=== PATIENT | female | born 2000 | race Caucasian/White ===

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

== ENCOUNTER 2019-01-23 16:57 | Emergency (ER) | payer OTHER ==
[2019-01-23] MEDS ORDERED: NORMAL SALINE 1000 ML 1,000 ML IV ONE (17:42)
--- NOTE | 2019-01-23 17:43 | ER Document Report ---
ED Medical Screen (RME) - General Chief Complaint: Palpitations Stated Complaint: HEART PROBLEMS Time Seen by Provider: 01/23/19 17:41 Mode of Arrival: Ambulatory Information source: Patient Notes: Patient presents complaining of palpitations that started today. Patient reports feeling distracted. Patient denies any cough or cold symptoms. No shortness of breath. Patient's heart rate in triage 134. She does report starting a new medication Luvox to treat OCD and anxiety. I have greeted and performed a rapid initial assessment of this patient. A comprehensive ED assessment and evaluation of the patient, analysis of test results and completion of the medical decision making process will be conducted by additional ED providers. TRAVEL OUTSIDE OF THE [place] IN LAST 30 DAYS: No - Related Data Allergies/Adverse Reactions: azithromycin [From Zithromax Z-Uri] Allergy (Unknown, Verified 02/28/17 19:55) Hives Past Medical History Renal/ Medical History: Denies: Hx Peritoneal Dialysis Psychiatric Medical History: Reports: Hx Attention Deficit Hyperactivity Disorder Past Surgical History: Reports: Hx Tonsillectomy - addenoids - Immunizations Immunizations up to date: Yes Hx Diphtheria, Pertussis, Tetanus Vaccination: Yes Physical Exam - Vital signs Vitals: Temp Pulse Resp BP Pulse Ox 98.9 F 118 H 20 139/86 H 100 01/23/19 17:01 01/23/19 17:01 01/23/19 17:01 01/23/19 17:01 01/23/19 17:01 - General General appearance: Alert, Anxious Notes: Tachycardic Course - Vital Signs Vital signs: Temp Pulse Resp BP Pulse Ox 98.9 F 118 H 20 139/86 H 100 01/23/19 17:01 01/23/19 17:01 01/23/19 17:01 01/23/19 17:01 01/23/19 17:01
[2019-01-23 19:10] LABS: ABSOLUTE BASOPHILS # (AUTO) 0.1 10^3/uL (0.0-0.2); ABSOLUTE EOSINOPHILS # (AUTO) 0.1 10^3/uL (0.0-0.6); ABSOLUTE LYMPHOCYTES (AUTO) 2.9 10^3/uL (0.5-4.7); ABSOLUTE MONOCYTES (AUTO) 0.5 10^3/uL (0.1-1.4); ABSOLUTE NEUT (AUTO) 5.5 10^3/uL (1.7-8.2); BASOPHILS % (AUTO) 0.6 % (0-2); EOSINOPHILS % (AUTO) 0.6 % (0-6); HEMATOCRIT 38.6 % (36.0-47.0); HEMOGLOBIN 12.9 g/dL (12.0-15.5); MEAN CORPUSCULAR HEMOGLOBIN 27.6 pg (27.0-33.4); MEAN CORPUSCULAR HGB CONC 33.5 g/dL (32.0-36.0); MEAN CORPUSCULAR VOLUME 82 fl (80-97); PLATELET COUNT 327 10^3/uL (150-450); RED BLOOD COUNT 4.68 10^6/uL (3.72-5.28); RED CELL DISTRIBUTION WIDTH 14.2 % (11.5-14.0); SEGMENTED NEUTROPHILS % (AUTO) 60.8 % (42-78); TOTAL CELLS COUNTED % (AUTO) 100 %; WHITE BLOOD COUNT 9.1 10^3/uL (4.0-10.5)
[2019-01-23 19:28] LABS: ALBUMIN 4.9 g/dL (3.5-5.0); ALKALINE PHOSPHATASE 86 U/L (38-126); ANION GAP 15 (5-19); ASPARTATE AMINO TRANSFERASE 27 U/L (14-36); BILIRUBIN,DIRECT 0.2 mg/dL (0.0-0.4); BLOOD UREA NITROGEN 10 mg/dL (7-20); CALCIUM 10.3 mg/dL (8.4-10.2); CARBON DIOXIDE 21 mmol/L (22-30); CHLORIDE 103 mmol/L (98-107); GLUCOSE 88 mg/dL (75-110); POTASSIUM 3.7 mmol/L (3.6-5.0); TOTAL PROTEIN 7.6 g/dL (6.3-8.2)
[2019-01-23 19:29] VITALS: BP 130/78
--- NOTE | 2019-01-23 19:39 | RADIOLOGY REPORT (SQ) ---
EXAM DESCRIPTION: CHEST 2 VIEWS COMPLETED DATE/TIME: 01/23/2019 7:20 pm REASON FOR STUDY: palpitations COMPARISON: None. EXAM PARAMETERS: NUMBER OF VIEWS: two views TECHNIQUE: Digital Frontal and Lateral radiographic views of the chest acquired. RADIATION DOSE: NA LIMITATIONS: none FINDINGS: LUNGS AND PLEURA: No opacities, masses or pneumothorax. No pleural effusion. MEDIASTINUM AND HILAR STRUCTURES: No masses or contour abnormalities. HEART AND VASCULAR STRUCTURES: Heart normal size. No evidence for failure. BONES: No acute findings. HARDWARE: None in the chest. OTHER: No other significant finding. IMPRESSION: NO ACUTE RADIOGRAPHIC FINDING IN THE CHEST. TECHNICAL DOCUMENTATION: JOB ID: [id number] [place]-72 2010 [employer]- All Rights Reserved Reading location - IP/workstation name: [facility]
--- NOTE | 2019-01-23 19:39 | ER Document Report ---
ED General - General Chief Complaint: Palpitations Stated Complaint: HEART PROBLEMS Time Seen by Provider: 01/23/19 17:41 Primary Care Provider: BRANDYN CORNELL PA-C [Primary Care Provider] - Follow up as needed (These follow- up with your doctor who prescribed the medication that you were taking.) Mode of Arrival: Ambulatory TRAVEL OUTSIDE OF THE [place] IN LAST 30 DAYS: No - HPI Context: Patient presents with onset of feeling anxious earlier today and socks on her finger and her heart rate went up to 160s as he came to the emergency department. She is back to normal baseline in the emergency department with a documented EKG with a rate of 83. No known medical problems. No known thyroid problems. She is taking medication for OCD and has been taking it for the last 3 days. Upon looking at up in [facility] her dizziness anxiety palpitations a re all common side effects of this medication. - Related Data Allergies/Adverse Reactions: azithromycin [From Zithromax Z-Uri] Allergy (Unknown, Verified 02/28/17 19:55) Hives Past Medical History - General Information source: Patient - Social History Smoking Status: Current Every Day Smoker Chew tobacco use (# tins/day): No Frequency of alcohol use: None Drug Abuse: None Family History: Thyroid Disfunction Patient has suicidal ideation: No Patient has homicidal ideation: No Renal/ Medical History: Denies: Hx Peritoneal Dialysis Psychiatric Medical History: Reports: Hx Attention Deficit Hyperactivity Disorder Past Surgical History: Reports: Hx Tonsillectomy - addenoids - Immunizations Immunizations up to date: Yes Hx Diphtheria, Pertussis, Tetanus Vaccination: Yes Review of Systems - Review of Systems Constitutional: No symptoms reported EENT: No symptoms reported Cardiovascular: See HPI Respiratory: No symptoms reported Gastrointestinal: No symptoms reported Genitourinary: No symptoms reported Female Genitourinary: No symptoms reported Musculoskeletal: No symptoms reported Skin: No symptoms reported Hematologic/Lymphatic: No symptoms reported Neurological/Psychological: No symptoms reported Physical Exam - Vital signs Vitals: Temp Pulse Resp BP Pulse Ox 98.9 F 118 H 20 139/86 H 100 01/23/19 17:01 01/23/19 17:01 01/23/19 17:01 01/23/19 17:01 01/23/19 17:01 - General General appearance: Appears well, Alert - HEENT Head: Normocephalic, Atraumatic Eyes: Normal Pupils: PERRL - Respiratory Respiratory status: No respiratory distress Chest status: Nontender Breath sounds: Normal Chest palpation: Normal - Cardiovascular Rhythm: Regular Heart sounds: Normal auscultation Murmur: No - Abdominal Inspection: Normal Distension: No distension Bowel sounds: Normal Tenderness: Nontender Organomegaly: No organomegaly - Neurological Neuro grossly intact: Yes Cognition: Normal Orientation: AAOx4 Course - Re-evaluation Re-evalutation: 01/23/19 20:51 Patient has a negative work-up for close risk score for chest pain as well as d- dimer negative. Medication she started in 3 days ago has common reactions under all her reaction she had. Advised to discontinue medications and follow-up with primary care doctor who prescribed them for further evaluation. Will provide Vistaril in the event patient has symptoms again. Return precautions provided - Vital Signs Vital signs: Temp Pulse Resp BP Pulse Ox 98.9 F 118 H 19 130/78 H 98 01/23/19 17:01 01/23/19 17:01 01/23/19 19:01 01/23/19 19:01 01/23/19 19:01 - Laboratory Result Diagrams: 01/23/19 18:28 01/23/19 18:28 Laboratory results interpreted by me: 01/23/19 01/23/19 18:28 18:28 RDW 14.2 H Carbon Dioxide 21 L Calcium 10.3 H - EKG Interpretation by Fl EKG shows normal: Sinus rhythm Rate: Normal Rhythm: NSR - Normal intervals and axis no concerning findings for WPW, Brugada, or prolonged QT Discharge - Discharge Clinical Impression: Palpitations Condition: Good Disposition: HOME, SELF-CARE Additional Instructions: Stop taking the medications were prescribed for OCD Prescriptions: Hydroxyzine Pamoate [Vistaril 50 mg Capsule] 50 mg PO ASDIR PRN #20 capsule PRN Reason: Referrals: BRANDYN CORNELL PA-C [Primary Care Provider] - Follow up as needed (These follow- up with your doctor who prescribed the medication that you were taking.)
[2019-01-23 19:43] LABS: FREE T3 4.63 pg/mL (2.77-5.27); FREE T4 (FREE THYROXINE) 1.17 ng/dL (0.78-2.19)
[2019-01-23 19:57] LABS: THYROID STIMULATING HORMONE 2.07 uIU/mL (0.47-4.68)
--- NOTE | 2019-01-25 00:57 | EKG REPORT ---
SEVERITY:- ABNORMAL ECG - SINUS RHYTHM PROBABLE LEFT ATRIAL ABNORMALITY : Confirmed by: Salty Ceron 25-Jan-2019 00:57:12
== END 2019-01-23 21:30 | disposition home or self-care (01) ==
LOC: ER 16:57
DX: R00.2 Palpitations (principal); F42.9 Obsessive-compulsive disorder, unspecified; F17.200 Nicotine dependence, unspecified, uncomplicated; Z88.1 Allergy status to other antibiotic agents; Z83.49 Family history of other endocrine, nutritional and metabolic diseases
CPT/HCPCS: 93005; 99285; 36415; 84439; 84443; 84703; 85025; 80053; 84481; 85379; 71046; 93010; J7030